=== PATIENT | female | born 2000 | race Two or more races ===

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

== ENCOUNTER 2021-12-01 14:29 | Emergency (ER) | payer MEDICAID ==
[~2021-12-01] VITALS: Ht 172.7 cm; Wt 118.2 kg
[2021-12-01 16:30] VITALS: BP 132/74
[2021-12-01] MEDS ORDERED: KETOROLAC TROMETH 60MG/2ML VIAL IM ONE (17:00)
[2021-12-01] MEDS ORDERED: PRED20TA2 PO (17:03)
[2021-12-01] MEDS ORDERED: IBUP800T27 PO (17:03)
== END 2021-12-01 17:24 | disposition home or self-care (01) ==
LOC: ER 14:29
DX: M25.562 Pain in left knee (principal); M25.561 Pain in right knee
CPT/HCPCS: 96372; 99283; J1885